=== PATIENT | female | born 1965 | race Caucasian/White ===

== ENCOUNTER → 2021-05-27 | Outpatient (CLI) | payer OTHER ==
[2016-01-13 17:53] VITALS: BP 110/71
[~2021-05-27] MED LIST: CITA20TA9 PO
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
== END ==
LOC: PMG 13:14
PROVIDERS: ATTEND Physician Assistant
DX: M47.812 Spondylosis without myelopathy or radiculopathy, cervical region (principal); M48.03 Spinal stenosis, cervicothoracic region
CPT/HCPCS: 72050; 72072